=== PATIENT | male | born 1980 | race Caucasian/White ===

== ENCOUNTER 2018-08-19 21:14 | Emergency (ER) | payer OTHER ==
[~2018-08-19] VITALS: Ht 188 cm; Wt 97.1 kg
[~2018-08-19 21:14] MED LIST: ACETAMINOPHEN-1 EAC1 PO; GENTAK5 ML OP; IBUPROFEN 400400 M2 PO; NOHOMEMEDICATIONS; NORCO 5-325 TA1 EAC1 PO; NORCO 5-325 TA1 EACH PO; TRAMADOL 50 MG50 MG PO; ZPAK PO
[2018-08-19] MEDS ORDERED: ACETAMINOPHEN-1 EAC1 PO (22:24)
[2018-08-19] MEDS ORDERED: IBUPROFEN 800800 MG PO (22:24)
[2018-08-19 22:49] VITALS: BP 114/69
== END 2018-08-19 22:50 | disposition home or self-care (01) ==
LOC: M.ERS 21:14
DX: M72.2 Plantar fascial fibromatosis (principal); M77.31 Calcaneal spur, right foot; F17.210 Nicotine dependence, cigarettes, uncomplicated